=== PATIENT | male | born 1990 | race Native Hawaiian/Other Pacific Islander ===

== ENCOUNTER 2022-11-10 19:11 | Emergency (ER) | payer OTHER ==
[~2022-11-10] VITALS: Ht 188 cm; Wt 61.4 kg
[2022-11-10 19:11] VITALS: TEMP 99
[2022-11-10 21:00] VITALS: BP 120/72
== END 2022-11-10 21:49 | disposition home or self-care (01) ==
LOC: ED 19:11
DX: M54.6 Pain in thoracic spine (principal); V89.2XXA Person injured in unspecified motor-vehicle accident, traffic, initial encounter; F17.210 Nicotine dependence, cigarettes, uncomplicated
CPT/HCPCS: 96374; 96375; 99284; J2270; J2405